=== PATIENT | male | born 1980 | race Caucasian/White ===

== ENCOUNTER 2024-12-02 08:40 | Outpatient (CLI) | payer OTHER | END 2024-12-02 08:41 | disposition home or self-care (01) | LOC: CSHULT 08:40 | PROVIDERS: ATTEND Family Medicine Sports Medicine | DX: R11.0 Nausea (principal); N28.81 Hypertrophy of kidney; N28.1 Cyst of kidney, acquired | CPT/HCPCS: 76700 ==